=== PATIENT | female | born 1990 | race Caucasian/White ===

== ENCOUNTER 2017-12-26 10:49 | Emergency (ER) | payer BC, MEDICAID ==
[2017-12-26 13:38] VITALS: BP 119/68
--- NOTE | 2017-12-26 14:21 | ED ---
Lower Extremity - HPI Summary HPI Summary: Patient is a 27 her old female presenting to the ED with left dorsum foot pain. She states she is - History of Current Complaint Chief Complaint: EDExtremityLower Stated Complaint: LT FOOT PAIN Time Seen by Provider: 12/26/17 11:54 Pain Intensity: 5 Pain Scale Used: 0-10 Numeric - Allergies/Home Medications Allergies/Adverse Reactions: Allergies Allergy/AdvReac Type Severity Reaction Status Date / Time No Known Allergies Allergy Verified 12/26/17 10:55 Home Medications: Home Medications Cholecalciferol TAB* [Vitamin D TAB*] 1,000 unit PO DAILY 12/26/17 [History Confirmed 12/26/17] Omeprazole CAP* [Prilosec CAP* 20 MG] 20 mg PO DAILY 12/26/17 [History Confirmed 12/26/17] Vitamin TAB* 1 tab PO DAILY 12/26/17 [History Confirmed 12/26/17] PMH/Surg Hx/FS Hx/Imm Hx Infectious Disease History: No Infectious Disease History: Denies: Traveled Outside the [place] in Last 30 Days - Social History Alcohol Use: None Substance Use Type: Reports: None Smoking Status (MU): Former Smoker Physical Exam Vital Signs On Initial Exam: Initial Vitals Temp Pulse Resp BP Pulse Ox 98.6 F 84 14 125/79 100 12/26/17 10:52 12/26/17 10:52 12/26/17 10:52 12/26/17 10:52 12/26/17 10:52 Diagnostics - Vital Signs Vital Signs Temp Pulse Resp BP Pulse Ox 12/26/17 13:37 98.1 F 84 16 119/68 100 12/26/17 10:52 98.6 F 84 14 125/79 100 - Laboratory Lab Statement: Any lab studies that have been ordered have been reviewed, and results considered in the medical decision making process. Discharge - Discharge Plan Condition: Stable Disposition: HOME Patient Education Materials: Tendinitis (ED) Forms: *Work Release Referrals: Zenia Perales NP [Primary Care Provider] - Additional Instructions: I believe you have some tendinitis possibly due to a stress fracture Staying off the foot as much as possible Ice to the area and elevation Please follow-up with your PCP I will take you out of work for 3 days and then with restrictions - Billing Disposition and Condition Condition: STABLE Disposition: HOME
--- NOTE | 2017-12-26 14:22 | ED ---
Lower Extremity - HPI Summary HPI Summary: Patient is a 27 her old female presenting to the ED with left dorsum foot pain. She states she is 6 months and has gained weight very quickly, putting a lot of pressure on to her bilateral feet as she stands for work for several hours per day. She has had this pain 1 week. She denies any known injury. She did not twist it. She denies any redness, warmth, numbness or tingling to the area. She states it is painful to ambulate and put pressure on it, but at rest, she denies any pain. She denies any pain if she is not bearing weight. She is otherwise healthy, takes vitamins. She has never had musculoskeletal injuries in the past. She has not taken anything for relief that she is . She would not like an x-ray at this time. - History of Current Complaint Chief Complaint: EDExtremityLower Stated Complaint: LT FOOT PAIN Time Seen by Provider: 12/26/17 11:54 Hx Obtained From: Patient Onset of Pain: Days Onset/Duration: Weeks Severity Initially: Mild Severity Currently: Mild Pain Intensity: 5 Pain Scale Used: 0-10 Numeric Timing: Constant Location: Is Discrete @ - dorsum of the L foot Character Of Pain: Aching Associated Signs And Symptoms: Negative: Swelling, Redness, Bruising, Weakness, Dizziness, Syncope Aggravating Factor(s): Standing, Ambulation Alleviating Factor(s): Rest Able to Bear Weight: No - Risk Factors Gout Risk Factors: Negative DVT Risk Factors: Septic Arthritis Risk Factor: Negative - Allergies/Home Medications Allergies/Adverse Reactions: Allergies Allergy/AdvReac Type Severity Reaction Status Date / Time No Known Allergies Allergy Verified 12/26/17 10:55 Home Medications: Home Medications Cholecalciferol TAB* [Vitamin D TAB*] 1,000 unit PO DAILY 12/26/17 [History Confirmed 12/26/17] Omeprazole CAP* [Prilosec CAP* 20 MG] 20 mg PO DAILY 12/26/17 [History Confirmed 12/26/17] Vitamin TAB* 1 tab PO DAILY 12/26/17 [History Confirmed 12/26/17] PMH/Surg Hx/FS Hx/Imm Hx Previously Healthy: Yes - Immunization History Hx Pertussis Vaccination: No Immunizations Up to Date: Yes Infectious Disease History: No Infectious Disease History: Denies: Traveled Outside the [place] in Last 30 Days - Social History Occupation: Employed Part-time Lives: With Family Alcohol Use: None Hx Substance Use: No Substance Use Type: Reports: None Hx Tobacco Use: Yes Smoking Status (MU): Former Smoker Review of Systems Constitutional: Negative Negative: Fever, Chills, Fatigue, Skin Diaphoresis Negative: Photophobia, Blurred Vision Negative: Palpitations, Chest Pain Negative: Shortness Of Breath, Cough Genitourinary: Negative Positive: no symptoms reported, see HPI Positive: Arthralgia Skin: Negative Neurological: Negative All Other Systems Reviewed And Are Negative: Yes Physical Exam Triage Information Reviewed: Yes Vital Signs On Initial Exam: Initial Vitals Temp Pulse Resp BP Pulse Ox 98.6 F 84 14 125/79 100 12/26/17 10:52 12/26/17 10:52 12/26/17 10:52 12/26/17 10:52 12/26/17 10:52 Vital Signs Reviewed: Yes Appearance: Positive: Well-Appearing, Well-Nourished Skin: Positive: Warm, Skin Color Reflects Adequate Perfusion Head/Face: Positive: Normal Head/Face Inspection Eyes: Positive: EOMI, JONNIE, Conjunctiva Clear Neck: Positive: Supple, Nontender, No Lymphadenopathy Respiratory/Lung Sounds: Positive: Clear to Auscultation, Breath Sounds Present Cardiovascular: Positive: RRR, Pulses are Symmetrical in both Upper and Lower Extremities. Negative: Leg Edema Left, Leg Edema Right Musculoskeletal: Positive: Limited @ - no limtations, pain on palpation over the dorsum of the foot over the metatarsals, - homans sign, no edema present Neurological: Positive: Sensory/Motor Intact, Alert, Oriented to Person Place, Time, Speech Normal Psychiatric: Positive: Normal, Affect/Mood Appropriate AVPU Assessment: Alert Diagnostics - Vital Signs Vital Signs Temp Pulse Resp BP Pulse Ox 12/26/17 13:37 98.1 F 84 16 119/68 100 12/26/17 10:52 98.6 F 84 14 125/79 100 - Laboratory Lab Statement: Any lab studies that have been ordered have been reviewed, and results considered in the medical decision making process. Lower Extremity Course/Dx - Course Course Of Treatment: During the course of treatment, the patient is evaluated for right foot pain. On physical examination there is pain to deep palpation of the dorsum of the foot in the metatarsal bones and the phalanges of the foot. Denies any pain to the ankle. Upon bearing weight she states the pain radiates up to the right side of her lower extremity, sparing the calf muscle. There is no swelling or erythema to the calf. She denies any calf pain otherwise. I have discussed with the patient that I do not believe this is a DVT as she has no pain to the calf and only radiated pain to the lateral side of the lower extremity with ambulation. She agrees with this and states she would like 3 days off work to attempt to heal. I have encouraged ice and elevation. - Diagnoses Provider Diagnoses: Tendonitis Discharge - Sign-Out/Discharge Documenting (check all that apply): Discharge/Admit/Transfer - Discharge Plan Condition: Stable Disposition: HOME Patient Education Materials: Tendinitis (ED) Forms: *Work Release Referrals: Zenia Perales NEW PRODUCT TRAINER [Primary Care Provider] - Additional Instructions: I believe you have some tendinitis possibly due to a stress fracture Staying off the foot as much as possible Ice to the area and elevation Please follow-up with your PCP I will take you out of work for 3 days and then with restrictions - Billing Disposition and Condition Condition: STABLE Disposition: HOME
== END 2017-12-26 13:37 | disposition home or self-care (01) ==
LOC: ED 10:49
DX: M77.9 Enthesopathy, unspecified (principal); M79.672 Pain in left foot; Z87.891 Personal history of nicotine dependence
CPT/HCPCS: 99281

== ENCOUNTER 2018-01-12 08:58 | Emergency (ER) | payer BC, MEDICAID ==
[2018-01-12 09:09] VITALS: BP 132/90
--- NOTE | 2018-01-12 09:45 | UC ---
Skin Complaint HPI - HPI Summary HPI Summary: 27 yo WF 36wk GA c/o tick bite on left lateral forearm since last night, her mother pulled out most of it but thinks there is some left in there. Also c/o PUPPP rash on her abdomen which is worsening in spite of Benadryl. - History of Current Complaint Chief Complaint: UCGeneralIllness Stated Complaint: TICK BITE Hx Obtained From: Patient ?: Yes Onset/Duration: Sudden Onset Timing: Constant Onset Severity: Moderate Current Severity: Moderate Pain Intensity: 0 Location: Other - right upper arm Character: Redness - Allergy/Home Medications Allergies/Adverse Reactions: Allergies Allergy/AdvReac Type Severity Reaction Status Date / Time No Known Allergies Allergy Verified 01/12/18 09:04 Review of Systems Constitutional: Negative Skin: Rash, Other - tick bite Eyes: Negative ENT: Negative Respiratory: Negative Cardiovascular: Negative Gastrointestinal: Negative Genitourinary: Negative Motor: Negative Neurovascular: Negative Musculoskeletal: Negative Neurological: Negative Psychological: Negative All Other Systems Reviewed And Are Negative: Yes PMH/Surg Hx/FS Hx/Imm Hx Previously Healthy: Yes - Surgical History Surgical History: None - Social History Alcohol Use: None Substance Use Type: None Smoking Status (MU): Current Every Day Smoker Amount Used/How Often: 2 cigs per day Physical Exam Triage Information Reviewed: Yes Appearance: No Pain Distress Vital Signs: Initial Vital Signs Temp 36.4 C 01/12/18 09:05 Pulse 100 01/12/18 09:05 Resp 18 01/12/18 09:05 BP 132/90 01/12/18 09:05 Pulse Ox 100 01/12/18 09:05 Vital Signs Reviewed: Yes ENT Exam: Normal ENT: Positive: Normal ENT inspection Dental Exam: Normal Neck exam: Normal Neck: Positive: Supple Respiratory Exam: Normal Respiratory: Positive: Chest non-tender Cardiovascular Exam: Normal Abdomen Description: Positive: Other: - pruritic raised erythematous PUPPP rash Musculoskeletal Exam: Normal Neurological Exam: Normal Skin: Positive: significant lesion(s) - small 3mm erythematous skin lesion on right post upper arm with central black insect particle Course/Dx - Course Course Of Treatment: Remainder of tick removed with 18G needle, no tx needed as it attached <12hrs without engorgement. Suggested OTC remedies for PUPPP rash - Diagnoses Provider Diagnoses: tick bite <72hrs. PUPPP Discharge - Sign-Out/Discharge Documenting (check all that apply): Discharge/Admit/Transfer - Discharge Plan Condition: Stable Disposition: HOME Patient Education Materials: Tick Bite (ED), Pruritic Urticarial Papules and Plaques of (ED) Referrals: Zenia Perales BOTTOM BUFFER [Primary Care Provider] - Additional Instructions: follow up with SYSTEM PLANNING ENGINEER - Billing Disposition and Condition Condition: STABLE Disposition: HOME
== END 2018-01-12 09:53 | disposition home or self-care (01) ==
LOC: UCEAST 08:58
DX: O26.893 Other specified pregnancy related conditions, third trimester (principal); Z3A.36 36 weeks gestation of pregnancy; S50.862A Insect bite (nonvenomous) of left forearm, initial encounter; W57.XXXA Bitten or stung by nonvenomous insect and other nonvenomous arthropods, initial encounter; Y92.9 Unspecified place or not applicable; O26.86 Pruritic urticarial papules and plaques of pregnancy (PUPPP); O99.333 Smoking (tobacco) complicating pregnancy, third trimester; F17.210 Nicotine dependence, cigarettes, uncomplicated
CPT/HCPCS: 99211; G0463